=== PATIENT | female | born 1975 | race Caucasian/White ===

== ENCOUNTER 2017-02-08 09:40 | Inpatient (IN) | payer OTHER ==
[~2017-02-08] VITALS: Ht 172.7 cm; Wt 93.4 kg
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
--- NOTE | ~2017-02-08 | INDIVTXPLN ---
"PATIENT: NANO QUINTERO | | [facility] UNIT #: [id number] | [address] AGE/SEX: 41 F : 75 | [address] | [place] [phone] ADMIT/REG DATE: 02/08/17 | ROOM: [facility] LOC: ADTC | ADTC | Individualized Treatment Plan Date: 01 MAR 2017 Problem Statement/Issue Identified: NANO PROFESSES A BELIEF IN GOD BUT HAS CONTINUED TO TURN TO DRUGS/ALCOHOL TO HELP HER COPE WITH LIFE STRESSORS. Goal: NANO WILL FOCUS ON BUILDING A STRONGER AND PERSONAL RELATIONSHIP WITH HER HIGHER POWER. Objectives/Activities to achieve goal: 1. Nano will read LETTING GO OF THE NEED TO CONTROL highlighting those characteristics and behaviors that parallel her own experience. She will discuss her work and insights gained with her primary counselor. Due Date: Complete: Incomplete: 2. Nano will attend SPIRITUALITY EDUCATION, SPIRITUAL ENRICHMENT & AND AND MORAVIAN SERVICES AVAILABLE during the course of her treatment. Due Date: Complete: Incomplete: Client signature Date Counselor signature Date Outcome/Measurement of Progress Towards Goal: Counselor's signature Date "
--- NOTE | ~2017-02-08 | RESCARESUM ---
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 CLIENT DID VERY WELL WITH ALL ASSIGNMENTS APPEARING TO GAIN NEW INSIGHT AND UNDERSTANDING. Continued Obstacles to Sobriety/Relapse Issues: PAST RELATIONSHIPS, OLD FRIENDS/OLD PLACES, FAILURE TO FOLLOW THROUGH WITH TREATMENT/AFTERCARE RECOMMENDATIONS, CODEPENDENCY ISSUES, EXCESSIVE LAURENT ON HAND (TRIGGER FOR GAMBLING AND/OR USING), UNREALISTIC EXPECTATIONS OF SELF AND OTHERS. Family Issues Addressed: FAMILY WAS NOT ABLE TO PARTICIPATE FOR VARIOUS REASONS, BUT CLIENT DID WRITE AND PROCESS FEELINGS LETTERS TO EACH OF HER SONS AND HER MOM WHICH APPEARED TO INITIATE HEALING. Y Individual Therapy Y Group Therapy Y Educational Series on Substance Abuse N Parents/Significant Others Attended Family Program N Acute Medical Problems During the Course of Treatment N Transferred to Hospital During the Course of Treatment Y Accepting of Substance Abuse Problem Completed AA Step # 1 During This Level of Care VERY THOROUGH PATIENT: NANO QUINTERO | | [facility] UNIT #: [id number] | [address] AGE/SEX: 41 F : 75 | [address] | [place] [address] ADMIT/REG DATE: 02/08/17 | ROOM: [facility] LOC: ADTC | ADTC | Summary of Residential Care Reason For Discharge: Y Completed Residential [place] Goals and Ready For Next Level of Care Continuing Care Plan/Recommendations: Y Intensive Partial Care Y Sponsor Y AA Meetings/NA Meetings Y Outpatient Y Co-dependency services Y [address] NEEDS TO BE CONSIDERED IF CLIENT IS UNABLE TO STAY CLEAN/SOBER Y Mental Health Therapy MAY NEED FOR MEDICATION MANAGEMENT Y Family Counseling CLIENT AND HER SON(S) WOULD BENEFIT FROM SOME FAMILY SESSIONS Specific Continuing Care Plan: CLIENT IS REFERRED TO [facility] IN [place] FOR INTENSIVE OUTPATIENT AFTERCARE TREATMENT. CLIENT NEEDS TO SUCCESSFULLY COMPLETE ANY AND ALL REQUIREMENTS OF THIS PROGRAM AND ENGAGE IN RECOMMENDED AFTERCARE RECOMMENDED FOLLOWING HER COMPLETION OF IOP. CLIENT NEEDS TO ATTEND 2-3 AA/NA MEETINGS EACH WEEK AND BE WILLING TO WORK ONE ON ONE WITH AN AA/NA SPONSOR. PRIMARY COUNSELOR: MILA JOHNSON [facility]"
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
--- NOTE | ~2017-02-08 | INDIVTXPLN ---
"PATIENT: NANO QUINTERO L | | [facility] UNIT #: [id number] | [address] AGE/SEX: 41 F : 75 | [address] | [place] [phone] ADMIT/REG DATE: 02/08/17 | ROOM: [facility] LOC: ADTC | ADTC | Individualized Treatment Plan Date: 01 MAR 2017 Problem Statement/Issue Identified: NANO NEEDS TO GAIN UNDERSTANDING OF CODEPENDENCY/MALE DEPENDENCY AND THE IMPORTANCE OF BOUNDARIES IN HER RELATIONSHIPS. Goal: NANO WILL GAIN UNDERSTANDING OF THE CHARACTERISTICS OF HEALTHY VS UNHEALTHY RELATIONSHIPS, CARETAKING VS CAREGIVING AND THE IMPORTANCE OF MAINTAINING HEALTHY BOUNDARIES IN HER RELATIONSHIPS. Objectives/Activities to achieve goal: 1. Nano will read BOUNDARIES FOR CODEPENDENTS highlighting thinking and behaviorial patterns that parallel her own experience. She will discuss her work and any insights gained with her primary counselor. Due Date: Complete: Incomplete: 2. Nano will read handout CODEPENDENCY; A SECOND-HAND LIFE. She will discuss insights gained with her primary counselor. Due Date: Complete: Incomplete: 3. Nano will identify at least FIVE NEW BOUNDARIES she needs to establish in her relationships and discuss these with her counselor. Due Date: Complete: Incomplete: Client signature Date Counselor signature Date Outcome/Measurement of Progress Towards Goal: Counselor's signature Date "
--- NOTE | ~2017-02-08 | TXPLANREV ---
"PATIENT: NANO QUINTERO | | [facility] UNIT #: [id number] | [address] AGE/SEX: 41 F : 75 | [address] | [place] [phone] ADMIT/REG DATE: 02/08/17 | ROOM: [facility] LOC: ADTC | ADTC | Treatment Plan/Staffing Review Date: 01 MAR 2017 Treatment plan was reviewed and determined appropriate as written: TREATMENT PLAN IS APPROPRIATE WRITTEN. Treatment plan was reviewed and the following changes/addition/deletions are necessary: ADDITIONAL TREATMENT PLANS WERE CREATED TO ADDRESS RELAPSE/FEELINGS/GRIEF/CODEPENDENCY ISSUES. Discharge plans were reviewed and determined appropriate as previously documented: PREVIOUSLY DOCUMENTED DISCHARGE PLANS ARE APPROPRIATE. Discharge plans were reviewed and determined to be as follows: CLIENT IS COMPLETING PAPERWORK TO REGISTER FOR INTENSIVE OUTPATIENT AFTERCARE AT [facility] IN [place]. Other pertinent issues discussed during this staffing review include: CLIENT HAS MADE SIGNIFICANT PROGRESS EVIDENCED BY HER WILLINGNESS TO BE HONEST IN IDENTIFYING SPECIFIC EXAMPLES OF POWERLESSNESS AND UNMANAGABILITY, COMPLETION OF ASSIGNMENTS IN A TIMELY FASHION, GETTING AND GIVING FEEDBACK IN GROUP AND WILLINGNESS TO SHARE AND DISCUSS ONGOING CONCERNS AND ISSUES IN INDIVIDUAL SESSIONS. CLIENT IS CURRENTLY WORKING ON CODEPENDENCY ISSUES, BOUNDARIES, LETTING GO OF THE NEED TO CONTROL AND MY CHANGE PLAN. SHE WILL START FAMILY EDUCATION TODAY. Staff Present: JOSEPHINE EVANS PRIMARY COUNSELOR: MILA JOHNSON [facility] Client Signature Counselor Signature Date Time "
--- NOTE | ~2017-02-08 | INDIVTXPLN ---
"PATIENT: NANO QUINTERO | | [facility] UNIT #: [id number] | [address] AGE/SEX: 41 F : 75 | [address] | [place] [phone] ADMIT/REG DATE: 02/08/17 | ROOM: [facility] LOC: ADTC | ADTC | Individualized Treatment Plan Date: 01 MAR 2017 Problem Statement/Issue Identified: NANO NEEDS TO GAIN UNDERSTANDING AND BE ABLE TO RECOGNIZE POTENTIAL RELAPSE TRIGGERS/ ISSUES. Goal: NANO WILL IDENTIFY POTENTIAL RELAPSE TRIGGERS/ISSUES AND DEVELOP A PLAN TO DEAL WITH THEM THEY ARISE. Objectives/Activities to achieve goal: 1. Nano will obtain a TEMPORARY SPONSOR and be willing to contact her while she is still here in treatment. Due Date: Complete: Incomplete: 2. Nano will attend all 12-STEP SUPPORT MEETINGS whild she is in treatment making it a point to reach out to other women in recovery and begin to develop a healthy support system. Due Date: Complete: Incomplete: 3. Nano will read RELAPSE TRIGGERS & WARNING SIGNS identifying her top five triggers. She will discuss these with her primary counselor and develop a plan to deal with them as they arise. Due Date: Complete: Incomplete: 4. Nano will complete MY CHANGE PLAN and process her work with her primary counselor. Due Date: Complete: Incomplete: Client signature Date Counselor signature Date Outcome/Measurement of Progress Towards Goal: Counselor's signature Date "
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
--- NOTE | 2017-02-08 13:37 | NUR ---
FAMILY CONTACT: Left [facility] for client's mom to call. She is to have hip surgery while the client is here in treatment will likely not attend any programing. The oldest son is working in [place], the next is in long-term, #3 lives with his aunt and she through #4 might beable to come, but he is in school. I will continue to work on this.
--- NOTE | 2017-02-08 15:59 | NUR ---
ADMISSION NOTE Client is a 41 y/o, single female, referred to treatment by the court and brought here today by a female friend from client's home in [place], where client resides with her mom. Client states DOC is meth, last used December 24, 2016 in what client describes as a small amount. Client states NKMA and brings with her some bjkd-hnk-gxhtlfv medications. These home medications were packaged for storage at the pharmacy. Client anticipates family group participation from her mom and son. Rights/Responsibilities: Copy given and explained to client. Signed and accepted by client. Client oriented to physical lay out of the ADTC unit, given Big Book and admission packet. A Elian was assigned. Tamika
--- NOTE | 2017-02-08 16:32 | NUR ---
FAMILY CONTACT: Did visit with client's mom. She is planning hip surgery so has difficulty walking unassisted. She does want to be involved and is grateful client is here. I will check back on her once she has had time to look over family packet.
--- NOTE | 2017-02-08 19:13 | NUR ---
Education 1HR: Clt watched half of video "Pleasures Unwoven" with staff present.
--- NOTE | 2017-02-08 23:13 | NUR ---
Tech note: Clt played a game for rec, attended GM and onsite AA mtg. Clt was searched checked into room and had first intro to grp. SE was arriving at tx.
--- NOTE | 2017-02-09 04:26 | NUR ---
Bed Note: Clt lay motionless in bed with eyes closed showing no distress at all bed checks.
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
--- NOTE | 2017-02-09 13:00 | NUR ---
PEER REVIEWS 1 HR: Clt participated in peer reviews and took a risk to give open and honest feedback to those receiving a review.
--- NOTE | 2017-02-09 13:07 | NUR ---
Tech Note: Client is working on Getting Started.
--- NOTE | 2017-02-09 21:57 | NUR ---
med note: client complained of headache. pain level 3 motrin given
--- NOTE | 2017-02-09 22:40 | NUR ---
Tech note : Client watched movies, played games with peers and walked to an offsite AA meeting.
--- NOTE | 2017-02-10 04:09 | NUR ---
Bed note: Client was in bed with eyes closed and no distress at all bed checks.
--- NOTE | 2017-02-10 07:45 | NUR ---
Medication Note: Client took mucinex for congestion and prn ibuprophen for H/A rated at 4.
--- NOTE | 2017-02-10 16:36 | NUR ---
Tech Note: Client attended N.A.Panel and is working on Getting Started. Client also went for a walk today.
--- NOTE | 2017-02-10 22:20 | NUR ---
Tech note : Client worked on [employer], [employer] or watched sports for rec this evening. Client walked to an offsite AA meeting.
--- NOTE | 2017-02-11 04:07 | NUR ---
Bed note: Client was in bed with eyes closed with no distress at all bed checks
--- NOTE | 2017-02-11 15:27 | HP ---
ADMIT: 02/08/2017 RM/LOC: [id number] MR#: [id number] 2620 [facility] [address] [place] [phone] NANO QUINTERO [address] [facility] [address] [facility] [place] [place] [address] History and Physical SEX: F AGE: 41 : 1975 DATE OF SERVICE: CHIEF COMPLAINT: Chemical dependency. HISTORY OF PRESENT ILLNESS: Nano is a 41-year-old single, white female, who was admitted to residential level treatment at [facility] with a lengthy legal history after serving penitentiary time May 29 through October 19, 2016 in [facility] with domestic assault and use of a deadly weapon charges. She was additionally sent to probation and relapsed on meth and was referred to residential treatment. She has a lengthy prior legal history and states she has been in penitentiary probably around nine or ten times. Her legal charges mainly include burglary, DUI, refusal to submit, domestic assaults, theft and forgeries. Nano's drug of choice on admission is methamphetamines. She first started using meth at 38 years of age with friends when she smoked it. She states initially she smoked it daily for about nine months. She states she used 20 to 30 dollars a day. She admits to having sex to get money to buy drugs. She admits IV use once. She states her heaviest use was first nine months. The last year prior to going to penitentiary, she used it 3 to 4 times a week. Since September 2016, she states she only used it once and that was in November 2016. Second drug of choice is K2. She states she first started smoking K2 at 39. She states she used it daily from 39 to 40. She states that she has not used it in over a year. She states that she has used marijuana as well intermittently. At first started using that at 16 and used pot off and on to come off the meth. Her last marijuana use was in November 2016. Her third drug of choice was likely opiates. She states she used to love prescription pills. She first started using around 35 years of age. She states she would take 20 or 30 hydrocodones or oxycodone on a daily basis. She states that at times she would use up to 60 Xanax in 2 or 3 days. She states she last used opiates are benzodiazepines three years ago. She states she could no longer get them from her physician. Fourth drug of choice is alcohol. She states alcohol was really not a problem when she was young, but she states she drank off and on throughout high school and at times drank heavily. In her 20s, she states she did not drink as she was raising children. She states since 2011, she has been binge drinking. She would have anywhere from 4 to 6 ounces to a pint of hard liquor. Normally, she would only binge drink one or two times a week. Last alcohol use was a month ago. She denies any alcohol withdrawal, seizures, DTs, tremors, or hallucinations. She admits to using twice. She denies other illicit drug use. PAST MEDICAL HISTORY: Operations include tubal ligation, left Achilles tendon repair twice, four vaginal deliveries, meningitis as an illness and bipolar disorder and depression. ADMIT: 02/08/2017 RM/LOC: [id number] [facility] MR#: [id number] [address] [place] [phone] NANO QUINTERO [address] [place] [address] History and Physical SEX: F AGE: 41 : 1975 MEDICATIONS: None. ALLERGIES: NONE KNOWN. SOCIAL HISTORY: She is a 41-year-old single white female. She has 4 children. They are scattered about the state with her ex- and her other relatives. She smokes 8 to 10 cigars a day. She states she has had sex with numerous people in order to get money or what she wants and she used to have huge gambling addiction and admits to spending about a half a million dollars in gambling, many of which she swindled other people out of. REVIEW OF SYSTEMS: Remarkable for her mental health problems with depression, anxiety, and bipolar. Remainder review of systems negative. PHYSICAL EXAMINATION: VITAL SIGNS: She is 5 feet 8 inches with a weight 93 kg. Blood pressure 128/64 with a pulse 57, and temp 96.9. GENERAL APPEARANCE: This is a 41-year-old obese white female. She is alert and oriented and appears older than stated age. HEENT: Pupils are reactive. TMs are normal. Throat is normal. NECK: Without nodes or masses. HEART: Regular without murmur. LUNGS: Clear. ABDOMEN: Obese, soft, nontender, and benign. AND RECTAL: Deferred. EXTREMITIES: Reveal no clubbing, cyanosis, edema, or traction or splinter hemorrhages. NEUROLOGIC: Normal. ASSESSMENT: 1. Stimulant use disorder, severe with history of IV use. K2 use disorder, severe, in partial remission. 2. Opiate use disorder, severe, in full sustained remission. ADMIT: 02/08/2017 RM/LOC: Jose [id number] [facility] MR#: [id number] [address] [id number] NANO QUINTERO [id number] [place] [address] History and Physical SEX: F AGE: 41 : 1975 3. Alcohol use disorder, severe. 4. Tobacco dependency. 5. Bipolar disorder. 6. Increased risk of HIV. 7. Hepatitis C. 8. Obesity. PLAN: We will obtain HIV and hepatitis C testing on her. Place her on a multivitamin and thiamine and initiate Seroquel and Zoloft therapy, proceed with drug and alcohol abuse, dependency, treatment, and counseling and further evaluation and management based on course during hospitalization. Please see her hospital record for the details. Jos Martel MD/ marce JOB #: [id number] CC: Jos Martel, Attending Physician NO FAMILY PHYSICIAN, Family Physician
--- NOTE | 2017-02-11 16:54 | NUR ---
Tech Note: Client attended congregational in the morning. Client stated that she is working on, "How to Get Started in Treatment."
--- NOTE | 2017-02-11 20:50 | NUR ---
tech note: client c/o level 3 ear, back & tmj pain, motrin 400 mg was given
--- NOTE | 2017-02-11 23:05 | NUR ---
tech note: Client attended onsite AA Panel & participated in Community Clean. Client watched movies. SE: Easter Eggs.
--- NOTE | 2017-02-12 04:32 | NUR ---
tech note: client was motionless in no distress at all bed checks.
--- NOTE | 2017-02-12 10:20 | NUR ---
Tech Notes: Client is working on Getting Started
--- NOTE | 2017-02-12 11:04 | NUR ---
Education Note: Client watched video for education today.
--- NOTE | 2017-02-12 11:30 | NUR ---
GROUP 1.5 HR/ 11:1 Clients heard peer share GS packet and this client was attentive and shared about her son going to shelter, son found God and now is changed and wants mom to make it in recovery.
--- NOTE | 2017-02-12 16:00 | NUR ---
RECOVERY 101 1 HR/ All clients participated in discussing what are the fundamentals of what they learn at AA/NA meetings that will help them succeed in recovery such as meetings, sponsor, home group, working steps, service work, attending functions, slogans/acronyms as tools, etc. This client was involved.
--- NOTE | 2017-02-12 19:16 | NUR ---
Education: 1 Hour. Client attended "Communications" lecture presented by staff.
--- NOTE | 2017-02-12 20:09 | NUR ---
COUNSELOR NOTE: Client came to me with want to call her mother to bring cigarettes. Client said she got another counselor to try to reach her mother earlier to see if mom and client's son could come for the Family Education today. They apparently received no response and client was unable to reach her mother in this later attempt. I explained to client that if her mother was coming for Education, it would be within the next 1/2 hour. She still was insistant to call. I did make her wait until later, allowed the call and she [place] [facility] Session scheduled tomorrow.
--- NOTE | 2017-02-12 21:45 | NUR ---
tech note: client c/o back,ear & tmj level 4 pain @ 2145,motrin 400 mg given.
--- NOTE | 2017-02-12 23:36 | NUR ---
Client attended N.A.Meeting and went on a walk for rec. SE: Saw old friend at N.A.Meeting
--- NOTE | 2017-02-13 04:22 | NUR ---
Bed note: Client was in bed with eyes closed with no distress at all bed checks
--- NOTE | 2017-02-13 15:46 | NUR ---
Tech Note: Client participated in light stretching for monring exercise and went for an outdoor walk in the afternoon. Client followed programming.
--- NOTE | 2017-02-13 15:56 | NUR ---
APolly res group 1 hr/ratio 1:9/ Group heard feelings letters and a step one. Discussed how addiction has affected others and how we can turn things around. This client was quiet the whole group.
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
--- NOTE | 2017-02-13 18:55 | NUR ---
med note: client complained of headache. pain level 4. motrin given
--- NOTE | 2017-02-13 19:23 | NUR ---
Education note: 1 hour watched video "enabler".
--- NOTE | 2017-02-13 19:33 | NUR ---
education note: 1 hour lecture by [facility] on hiv/aid/std. plus clients wwere tested for HIV.
--- NOTE | 2017-02-13 22:22 | NUR ---
Tech note: client did not walk for rec as she was waiting for results from HIV testing. She participated in guided meditation and attended an onsite AA meeting.
--- NOTE | 2017-02-14 05:32 | NUR ---
Bed note : Client was in bed with eyes closed and no movement at all bed checks.
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
--- NOTE | 2017-02-14 12:24 | NUR ---
AM GROUP 11:11.5 HR: Client and peers helped to ORIENT A NEW PEER TO GROUP GUIDELINES, GOALS AND OBJECTIVES. Client and peers heard this client and several other individuals process assignments and some discussion on the disease concept. This client did process assigned pages from GETTING STARTED IN TREATMENT packet. She seems to have done well with this, but tends to expand on her written work and rambles on and on. We had to cut her processing short to give others a chance to share thier own work. She did not get defensive and went on to confront a male peer for his over-confidence and delusion.
--- NOTE | 2017-02-14 13:45 | NUR ---
Tech Note: Outside speaker Tristen Arauz spoke at 1300. Client attended and is working on Step 1.
--- NOTE | 2017-02-14 17:22 | NUR ---
SPIRITUAL EDUCATION 1 HR. Topics today were clarifying the differences between spirituality and uatsdin, and playing the spiritual challenge game where they are asked thought provoking open ended questions. It is meant to inspire spiritual line of thought.
--- NOTE | 2017-02-14 22:48 | NUR ---
Tech Note : Client participated in rec by playing catch phrase and attended an onsite NA meeting.
--- NOTE | 2017-02-14 23:41 | NUR ---
Education: 1 Hour. Client attended "Disease Concept" presented by counselor.
--- NOTE | 2017-02-15 05:40 | NUR ---
Bed Note: Client was motionless with eyes closed at all bed checks.
--- NOTE | 2017-02-15 13:39 | NUR ---
PEER REVIEWS 1 HR: Clt participated in peer reviews and took a risk to give open and honest feedback to those receiving a review. The last half hour of group clients talked about loved ones and dying.
--- NOTE | 2017-02-15 15:31 | NUR ---
Tech Note: Client participated in light stretching for morning exercise. Client stated that she is working on Step One.
--- NOTE | 2017-02-15 15:48 | NUR ---
Education 1 Hour: Client heard from a member of the recovery community who shared his experience, strength and hope.
--- NOTE | 2017-02-15 16:12 | NUR ---
Step Education 1 hr/ Focus was on step 12 "having had a spiritual awakening", each person completed a set of questions on paper and then we discussed. This client participated.
--- NOTE | 2017-02-15 19:43 | NUR ---
Tech note: client was off the unit for [employer] banquet and speaker event
--- NOTE | 2017-02-16 11:30 | NUR ---
Group 1.5 hr/ 10:1 Clients all heard peers share feelings letters and this client was attentive, heard others talk about parents not being there for them. She related to being a mom with an addiction which hurt her kids.
--- NOTE | 2017-02-16 13:58 | NUR ---
Tech Note: Client went with group on an outdoor walk. Client is working on Step 1.
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
--- NOTE | 2017-02-16 16:02 | NUR ---
Education Note: Client watched "How to Sabotage Your Treatment"
--- NOTE | 2017-02-16 23:00 | NUR ---
TECH NOTE: Client participated in reading [employer], watched tv/movies, attended optional off site AA meeting. SE: Phone
--- NOTE | 2017-02-17 04:06 | NUR ---
Bed Note: Clt lay motionless in bed with eyes closed showing no distress at all bed checks.
--- NOTE | 2017-02-17 15:26 | NUR ---
Tech Note: Client is working on Feelings Letters and had a visitor.
--- NOTE | 2017-02-17 22:57 | NUR ---
TECH NOTE: Client played a game for REC, attended off site AA meeting, watched TV/movies SE: AA
--- NOTE | 2017-02-18 04:49 | NUR ---
Bed Note: Clt lay motionless in bed with eyes closed showing no distress at all bed checks.
--- NOTE | 2017-02-18 15:26 | NUR ---
Tech Note: Client participated in Big Book and stated that she is working on writing Feelings Letters.
--- NOTE | 2017-02-18 23:00 | NUR ---
Tech Note: Client attended A.A.Panel and participated in community clean. Client also attended the PRESIDENT Meeting. SE: Visit. Her mother is in wheelchair and walked from car to Door for her.
--- NOTE | 2017-02-19 04:52 | NUR ---
Bed Note: Client was motionless with eyes closed at all bed checks.
--- NOTE | 2017-02-19 10:24 | NUR ---
Tech notes: Client is working on Fl's
--- NOTE | 2017-02-19 15:44 | NUR ---
Morning Group, 1.5 hours, 11/18 Clients all participated in 2 family sculptures with role-playing, feedback, and how they related.
--- NOTE | 2017-02-19 16:05 | NUR ---
RECOVERY EDUCATION 1 HR. Todays topic was on denial; good, bad, and levels, life problems being 85 percent of recovery, and distorted thinking patterns that can keep us stuck.
--- NOTE | 2017-02-19 16:31 | NUR ---
Education note: Client watched video "[address]mare on [address]"
--- NOTE | 2017-02-19 18:44 | NUR ---
Education: 1 Hour. Client attended "Feelings" lecture given by staff.
--- NOTE | 2017-02-19 21:13 | NUR ---
tech note: client c/o level 3 pain from TMJ,motrin 400mg given @ 2111.
--- NOTE | 2017-02-19 22:13 | NUR ---
Tech note: Client participated in rec by playing Idea Shower outside. Client attended an onsite NA meeting.
--- NOTE | 2017-02-20 04:17 | NUR ---
BED NOTE: client was in bed, motionless with eyes closed all three bed checks.
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
--- NOTE | 2017-02-20 16:20 | NUR ---
Relapse Prevention, 11/15 ratio, 1.0 hours, Client attended and actively participated in relapse prevention education which focused on personal reactions to high risk situtations such as personal reactions vs. personal responses, addictive thinking, irresponsible thinking, addictive behavior, irresponsible behavior, instant gratification, and emotional consequences to thoughts and actions.
--- NOTE | 2017-02-20 16:38 | NUR ---
Tech Note: Client listened to speaker Jos share his experience, strength and hope. Client is working on Feelings Letters.
--- NOTE | 2017-02-20 18:41 | NUR ---
INDIVIDUAL SESSION 1 HR: client processed FEELINGS LETTER to her mother. She did well with this, identifying her own behaviors but none of mom's. Client agreed that she would write a VENT letter to mom but nothing that she is willing to share. Client is working on her STEP ONE, but hasn't made much progress. She is experiencing a lot of shame.
--- NOTE | 2017-02-20 19:33 | NUR ---
Education : 1 hour lecture given by counselor on feelings.
--- NOTE | 2017-02-20 22:23 | NUR ---
Tech note: Client played catchphrase for rec, participated in guided meditation and attended AA meeting. SE:reading feelings letters
--- NOTE | 2017-02-21 04:25 | NUR ---
Bed note: client was in bed with eyes closed and no distress at all bed checks.
--- NOTE | 2017-02-21 10:05 | NUR ---
Tech notes: Client is working on Fl's
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
--- NOTE | 2017-02-21 13:30 | NUR ---
Education note: Client watched video
--- NOTE | 2017-02-21 16:25 | NUR ---
SPIRITUAL EDUCATION 1 HR. Todays topic was the ADDICTIVE SELF vs. SPIRITUAL SELF. We held discussion on who we are in our addiction vs who we are in recovery and contrasted the two.
--- NOTE | 2017-02-21 18:34 | NUR ---
Education: 1 hour lecture on self esteem given by counselor
--- NOTE | 2017-02-21 18:34 | NUR ---
Education: 1 hour lecture on self esteem given by counselor
--- NOTE | 2017-02-21 22:51 | NUR ---
Client did beads for rec and attended N.A.Meeting. SE: Having a good Razor
--- NOTE | 2017-02-22 04:01 | NUR ---
Bed note: client was in bed with eyes closed and no distress at all bed checks.
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
--- NOTE | 2017-02-22 15:29 | NUR ---
Tech Note: Client participated in Spiritual Enrichment in the morning and went for an outdoor walk after lunch. Client is bridget to a newly admitted client.
--- NOTE | 2017-02-22 16:17 | NUR ---
Education 1 Hour: Client heard a presentation on cross addiction.
--- NOTE | 2017-02-22 17:23 | NUR ---
Step ed. 1 hr/ focus was on step one and powerlessness. Each person answered a set of questions on paper and then we discussed out loud. This client participated.
--- NOTE | 2017-02-22 23:14 | NUR ---
TECH NOTE: Client did newcommer bookmarks for REC, participated in guided meditation, and attended AA meeting. SE: REC
--- NOTE | 2017-02-23 01:21 | NUR ---
1 HR EDUCATION: Client watched a video "Say Yes to Life" by Father Pete Reynaga
--- NOTE | 2017-02-23 04:43 | NUR ---
Bed Note: CLt lay motionless in bed with eyes closed showing no distress at all bed checks.
--- NOTE | 2017-02-23 13:39 | NUR ---
Morning Group, 11/08, 1.5 hours, Client attended and actively participated in group session. Client read her feelings letters and was accepting of feedback she received about the letters to her sons.
--- NOTE | 2017-02-23 14:54 | NUR ---
PEER REVIEWS 1.5 HRS: Clt participated in peer review process and took a risk to give open and honest feedback.
--- NOTE | 2017-02-23 16:25 | NUR ---
Tech Note: Clt watched "Relapse" for afternoon video. Clt is working on Feelings Letters.
--- NOTE | 2017-02-23 21:39 | NUR ---
med note: client complained of headache pain level 3 motrin was givne
--- NOTE | 2017-02-23 22:47 | NUR ---
Tech note: Client watched tv and movies. client went to an offsite AA meeting.
--- NOTE | 2017-02-24 05:23 | NUR ---
Bed note : Client was in bed motionless with eyes close at all bed checks.
--- NOTE | 2017-02-24 15:40 | NUR ---
Tech Note: Client attended A.A.Meeting at [facility] and [place] and then helped with the clubhouse cleaning, ate lunch, and listened to a speaker. Client is working on FL's/self esteem packets
--- NOTE | 2017-02-24 18:17 | NUR ---
tech note: client c/o level 4 TMJ pain & allergy symptoms @ 181,motrin 400 mg was given & mucinex.
--- NOTE | 2017-02-24 20:48 | NUR ---
tech note: Client played a game for recreation & attended offsite AA meeting.Client talked on the phone & watched tv. SE: Family.
--- NOTE | 2017-02-25 05:25 | NUR ---
Bed note: Client was in bed motionless with eyes closed at all bed checks.
--- NOTE | 2017-02-25 16:21 | NUR ---
TECH NOTE: Client participated in Chapter 5 of Big Book study, attended voodoo and watched tv/movies
--- NOTE | 2017-02-25 23:42 | NUR ---
tech note: client attended AA Panel & BLAST FURNACE CHECKER. Client participated in Community Clean & talked on the phone. SE: All day sober.
--- NOTE | 2017-02-26 04:40 | NUR ---
Bed Note: Clt lay motionless in bed with eyes closed showing no distress at all bed checks.
--- NOTE | 2017-02-26 11:15 | NUR ---
Tech notes: Client is working on Fl's
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
--- NOTE | 2017-02-26 15:41 | NUR ---
Education note: Client attended speaker for education, Bernice on Tobacco
--- NOTE | 2017-02-26 16:19 | NUR ---
INDIVIDUAL SESSION 1 HR: Client processing FEELINGS LETTERS to her four sons. She has done well with the letters, identifying specific incidents and her feelings of sad and ashamed. She shows no emotion as she shares them but early on, client did shed tears as she first began to get in touch with these things and talk specifics. Client has said more than once, "I have cried so many tears the past three years, I made up my mind that I wasn't going to cry and more, I'm just going to work on doing things different." Client is very determined, and I'm afraid experiencing some denial and delusion. Though she admits that she was hooked after the first time she used meth, she now believes that she and her sons (the three oldest) have all experimented with pot, k2 and meth (oldest) and she has used with them. Client is determined to go back to [place] and live with her oldest son. He was supposed to move in to a two bedroom apartment today. I will staff this tomorrow and contact her PO for imput but he has only met her one time. She was given MY CHANGE PLAN and LETTING GO OF THE NEED TO CONTROL and continues to work on BOUNDARIES & SIGNS OF ADDICTIVE LOVE.
--- NOTE | 2017-02-26 18:15 | NUR ---
Education: 1 hour lecture given by counselor on "forgiveness"
--- NOTE | 2017-02-26 22:29 | NUR ---
Tech note : Client went on a walk for rec and attended an onsite NA meeting. SE; Education
--- NOTE | 2017-02-27 04:16 | NUR ---
Bed note: Client was in bed with eyes closed and no distress at all bed checks.
--- NOTE | 2017-02-27 12:39 | NUR ---
A.M. 1.5 hr res group/ratio 1:10/ Group heard a getting started and a goodbye letter to addiction. Discussed having resentment towards self, how kids are forgiving, and we oriented 3 new group members. This client related and gave feedback.
--- NOTE | 2017-02-27 13:22 | NUR ---
Tech Note: Client participated in light stretching for morning exercise and went for an outdoor walk in the afternoon. Client stated that she is working on, "My Change Plan" and "[place]' Thinkin."
--- NOTE | 2017-02-27 13:35 | NUR ---
Education One Hour: Client heard a presentation on Sexually Transmitted Disease.
--- NOTE | 2017-02-27 14:15 | NUR ---
Medication Note: Client took prn ibuprophen for sore throat pain rated at 4, and mucinex and cepacol lozenge.
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
--- NOTE | 2017-02-27 16:09 | NUR ---
Relapse Prevention Education, 1.0 hours, Client attended and actively participated in relapse prevention education which focused on a Relapse Prevention Quiz and discussion over the answers.
--- NOTE | 2017-02-27 18:35 | NUR ---
med note: client complained of ear ache. pain level 3. motrin given
--- NOTE | 2017-02-27 20:30 | NUR ---
education note: 1 hour lecture by counselor on" what marion are you willing to pay"
--- NOTE | 2017-02-27 22:52 | NUR ---
Tech note: Client attended the Alumni meeting, participated in guided meditation and attended an onsite AA meeting. SE; Sharing with peer
--- NOTE | 2017-02-28 04:57 | NUR ---
Bed note: Client was in bed with eyes closed and motionless at all bed checks.
--- NOTE | 2017-02-28 10:40 | NUR ---
Tech notes: Client is working on Change plan
--- NOTE | 2017-02-28 12:37 | NUR ---
Education note: Client had education by [facility]
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
--- NOTE | 2017-02-28 17:29 | NUR ---
SPIRITUAL EDUCATION 1 HR. Todays topics were orienting newcomers, and taking a look at Evgeny Archibald's 5 SECRETS TO SUCCESS which include a look at the miracles of the human body as blessings.
--- NOTE | 2017-02-28 20:57 | NUR ---
education: 1 hour video on unresolved anger and group discussion with counselor
--- NOTE | 2017-02-28 22:12 | NUR ---
Tech note: Client worked on beaded project and attended an onsite NA meeting. Her S/O was at the meeting SE; Group
--- NOTE | 2017-03-01 04:03 | NUR ---
Bed note: Client was in bed with eyes closed and no distress at all bed checks.
--- NOTE | 2017-03-01 10:29 | NUR ---
Tech Note: Client participated in Spiritual Enrichment. Client followed programming.
--- NOTE | 2017-03-01 11:04 | NUR ---
INDIVIDUAL SESSION 1 HR: Client processed from [employer]OHAN [employer]INKIN and remaining FEELINGS LETTERS. Also talked with her about her Codependency issues. She is reading BOUNDARIES packet and will attend FAMILY EDUCATION today and Sunday. Contact made for aftercare. Client signed release and paperwork received from the agency.
--- NOTE | 2017-03-01 11:06 | NUR ---
DISCHARGE PLANNING: Contact made with [facility] in [place]. They have emailed registration forms which client will complete and send back. This has to be received before they will schedule an intake.
--- NOTE | 2017-03-01 11:24 | NUR ---
Medication Note: Client took prn ibuprophen for TMJ pain rated at 3 and mucinex.
--- NOTE | 2017-03-01 13:39 | NUR ---
Education 1 Hour: Client heard a presentation from a member of the recovery community who shared his experience, strength and hope.
--- NOTE | 2017-03-01 16:34 | NUR ---
FAMILY EDUCATION 3 HRS. Client attended alone and took part in the discussion on the disease concept. Client shared chemical history and the consequences. This client also shared about past gambling addiction and had 5 years of treatment for it.
--- NOTE | 2017-03-01 23:48 | NUR ---
Tech Note: Client attended Guided Meditation and A.A.Meeting. SE: Speaker
--- NOTE | 2017-03-02 04:25 | NUR ---
Eduction: 1 Hour. Client attended "Unresolved Anger" video & discussion presented by staff.
--- NOTE | 2017-03-02 11:43 | NUR ---
Group 1.5 Hr Ratio 1:9/Topics today were two getting started packets, forgiveness and dealing with bad childhoods. Client shared how she could relate to peers sharing that they struggle forgiving others or their self.
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
--- NOTE | 2017-03-02 16:24 | NUR ---
Tech Note: Client participated in group walk for exercise and watched "Recovery Issues Part 3" for afternoon video. Client is working on her Change Plan.
--- NOTE | 2017-03-02 22:49 | NUR ---
TECH NOTE: Client participated in reading guidelines and watched tv/movies. attended off site optional AA meeting SE: military source operations officer conversation
--- NOTE | 2017-03-03 04:11 | NUR ---
Bed Note: Clt lay motionless in bed with eyes closed showing no distress at all bed checks.
--- NOTE | 2017-03-03 08:35 | NUR ---
Medication Note: Client took prn ibuprophen for temporal/mandibular joint pain rated at 3.
--- NOTE | 2017-03-03 16:04 | NUR ---
Tech Note: Client attended NA Panel and is working on her Change Plan. She had a visitor.
--- NOTE | 2017-03-03 20:26 | NUR ---
Tech note: Clt played a game for recreation and attended offsite AA mtg. Watched tv, used phone and watched tv. Clt was redirected for making phone calls for male peer who didn't have phone priveleges. Filled out self care sheet. SE was visits and phone calls
--- NOTE | 2017-03-04 04:38 | NUR ---
Bed Note: Clt lay motionless in bed with eyes closed showing no distress at all bed checks.
--- NOTE | 2017-03-04 15:54 | NUR ---
Tech Note: Client participated in Big Book Study. Client stated that she is working on, "My Change Plan." Client attended caodaism and receiveda visitor.
--- NOTE | 2017-03-04 22:48 | NUR ---
Tech Note: Clt attended AA panel, DOUGH MIXING MACHINE OPERATOR mtg, used phone and watched movies. SE was DOUGH MIXING MACHINE OPERATOR and phone
--- NOTE | 2017-03-05 04:40 | NUR ---
Bed Note: Clt lay motionless in bed with eyes closed showing no distress at all bed checks.
--- NOTE | 2017-03-05 10:17 | NUR ---
Tech notes: Client is working on Change plan
--- NOTE | 2017-03-05 11:30 | NUR ---
Morning Group, 11/07 ration, 1.5 hours, Client attended and actively participated in group discussion. Client was quiet for most of group.
--- NOTE | 2017-03-05 13:31 | NUR ---
Education: Client attended education by [facility] on Infection prevention.
--- NOTE | 2017-03-05 16:38 | NUR ---
INDIVIDUAL SESSION 1 HR: Mostly paperwork session with client completing ther application for outpatient aftercare for [facility] in [place]. Client had many questions; fortunately, staff was able to assist her with these. She also needed premission to call her friend who will drive from [place] to pick her up and transport her back to [place]. Hopefully, we will have an appointment in place by discharge on . Client will process from MY CHANGE PLAN/RELAPSE PACKACT tommorow.
--- NOTE | 2017-03-05 16:42 | NUR ---
DISCHARGE PLANNING: Paperwork signed and completed to fax to [facility] in [place].
--- NOTE | 2017-03-05 17:00 | NUR ---
FAMILY EDUCATION 3 HRS. Client attended alone and took part in the discussion on the family roles, codependency and detachment. Client related to lost child role.
--- NOTE | 2017-03-05 18:12 | NUR ---
Education: 1 Hour. Client attended "Adult Children of Alcoholics" lecture presented by staff.
--- NOTE | 2017-03-05 21:00 | NUR ---
FAMILY GROUP 4:1/ HR: Client, peers and attending family members heard two families process FEELINGS LETTERS. Much of the focus became family of origin issues and rebuilding trust. Everyone related, everyone shared and processed. This client attended alone as her children are out of town. Client was active with personal observations, relating and personal sharing. She was tearful and talked about the reality that her children have been deeply hurt by her choices. Client said all she can do at this point is live "on the redemption side."
--- NOTE | 2017-03-05 23:35 | NUR ---
tech note: Client attended Family. SE: Family.
--- NOTE | 2017-03-06 04:32 | NUR ---
BED NOTE: Client was in bed, motionless with eyes closed all three bed checks.
--- NOTE | 2017-03-06 11:30 | NUR ---
GROUP 1.5 HRS. 1:9 Client participated in orienting new peer to purpose and rules of group. Group discussion included anger and frustration at peer's disrespect and immaturity. The peer was in the other group so clients were redirected at what they can do to be a part of the solution, not part of the problem. This client shared example of not letting her kids' behaviors ruin her day. She also took risk to share more about gambling addiction and how serious it was in the past. She reports she grew up gambling as he dad was also compulsive gambler. She did receive 5 years of treatment for gambling but admits she gambled her tax return away. She shared feelings of regret as she had promised money to help boyfriend keep his house and she lost it all. She had shared the slogan "1 is too many & 1,000 never enough" and advised this also applies to her gambling addiction.
--- NOTE | 2017-03-06 14:00 | NUR ---
INDIVIDUAL SESSION 1 HR: Client processed insight gained from SOHAN THINKIN & BOUNDARIES packets. Client has done well and has learned alot about her addiciton, the impact it has had on her children and enough to know that she needs to put current relationship on hold. Client recognizing that she needs to prioritize her own well-being and that of her children, now grown adults but all with issues. Client shared new understanding she gained in Family Group last night as other peers and their families processed. Session tomorrow for final assignment. Client will discharge on 03/08
--- NOTE | 2017-03-06 16:00 | NUR ---
Relapse Prevention, 1.0 hours, Client attended and actively participated in relapse prevention education which focused on internal and external triggers.
--- NOTE | 2017-03-06 16:37 | NUR ---
Tech Note: Client participated in Nutritional Services presentation and is working on her Change Plan.
--- NOTE | 2017-03-06 22:43 | NUR ---
Education: 1 hour lecture given by counselor on co-dependency
--- NOTE | 2017-03-06 22:53 | NUR ---
Tech note: clients played catchphrase for rec, participated in guided meditation and attended AA meeting SE:understanding from peers
--- NOTE | 2017-03-07 04:37 | NUR ---
bed note: client was in bed with eyes closed and motionless at all bed checks.
--- NOTE | 2017-03-07 12:38 | NUR ---
AM GROUP 9:10/29 1.5 HR: Client and peers participated in ORIENTATION OF TWO NEW PEERS TO GROUP GUIDELINES, PURPOSE, GOALS AND OBJECTIVES. Group heard several process assignments/issues. Much of the focus was on how deeply kids are affected by a parent"s chemical use, even if the kids don't directly see it. This client related giving more examples of how she neglected her relationships with her own children. She was otherwise supporive and encouraging.
--- NOTE | 2017-03-07 13:15 | NUR ---
Education note: Client attended educational speaker Marek Isaac
--- NOTE | 2017-03-07 18:18 | NUR ---
Education: 1 Hour. Client attended "Boudaries" lecture given by staff.
--- NOTE | 2017-03-07 22:57 | NUR ---
Tech Note: Client played a game for rec, and attended The on unit N.A.Meeting. SE: finding some understanding.
--- NOTE | 2017-03-08 04:30 | NUR ---
Bed Note: Client was in bed with eyes closed and motionless at all bed checks.
--- NOTE | 2017-03-08 11:00 | NUR ---
FINAL SESSION 1 HR: Client completed SATISFACTION SURVEY, CONTINUED CARE PLAN & was presented with her Medallion. Client expressed much gratitude for all that she has learned here. He son and his SO were here to pick her up, so I was able to meet them as well. He is very proud of his mom! Everything is set for client at [facility] in [place].
--- NOTE | 2017-03-08 12:52 | NUR ---
DISCHARGE NOTE Client completed treatment and left the facility taking all personal belonging with her, including home medications that had been stored at the pharmacy. Discharge instructions were reviewed and a signed copy provided to the client.
--- NOTE | 2017-04-23 12:53 | DS ---
ADMIT: 02/08/2017 RM/LOC: [id number] [facility] MR#: [id number] [address] [facility] [address] [place] [id number] NANO QUINTERO [address] [facility] [address] [place] [address] General Discharge Summary SEX: F AGE: 41 : 1975 ADMISSION DATE: 02/08/2017 DISCHARGE DATE: 03/08/2017 INDICATION FOR HOSPITALIZATION: Nano is a 41-year-old, single, white female, admitted to residential level treatment at [place] with a lengthy legal history, serving shelter May 29 to October 19, 2016. She was on probation, relapsed on meth, and was referred to treatment. Nano's drug of choice on admission is methamphetamines. Second drug of choice K2. Third drug of choice is opiates. Fourth drug of choice is alcohol. Please see her admission H and P for the details regarding her history of present illness, past medical history, physical exam, and assessment at the time of hospitalization. HOSPITAL COURSE: On admission, Nano was started on multivitamin and thiamine given her history of alcohol abuse and dependency. Claritin was added for allergies and HIV, and hepatitis C testing were requested. Seroquel and Zoloft dosing were adjusted for bipolar disorder. MiraLAX was added for constipation and later Omnicef for an upper respiratory infection. During treatment, her primary counselor assigned was Leland Smith. The patient underwent individual and group therapy sessions on drug and alcohol abuse and dependency. Relapse triggers were identified, and relapse prevention plan was outlined. Spirituality issues were addressed. Family was not able to attend the family portion of treatment program. Nano did write feelings letters to her son's and mother. She was overall accepting of substance abuse problems. She completed step 1 of Alcoholics Anonymous. Reason for discharge was completion of residential level treatment goals. Aftercare recommendations include referral to [facility] in [place] for intensive outpatient aftercare treatment. She additionally was to have sponsor assignment with outpatient counseling, codependency treatment, and active AA and NA meeting involvement. It was felt that her and her sons would benefit from family counseling. Additionally, mental health therapy followup was recommended for medical management of her mental health problems. LABORATORY AND X-RAY DATA: During treatment include hepatitis C testing, which was negative on February 13. HIV tests were confidential and none available at time of discharge. DISCHARGE MEDICATIONS: Include: 1. Claritin 10 mg daily. 2. MiraLAX 1 capful in 8 ounces of water. 3. Zoloft 50 mg daily. 4. Seroquel 50 mg at bedtime. 5. Multivitamin 1 daily. 6. Thiamin 100 mg daily. 7. Epsom salt soaks to feet at bedtime. 8. Omnicef 300 mg 2 capsules once daily to complete a 10-day course of therapy. ADMIT: 02/08/2017 RM/LOC: [id number] [facility] MR#: [id number] [address] [place] [id number] NANO QUINTERO [address] [place] [address] General Discharge Summary SEX: F AGE: 41 : 1975 FINAL DISCHARGE DIAGNOSES: Includes: 1. Stimulant use disorder, severe with history of IV use. 2. 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 3. Opiate use disorder, severe in full sustained remission. 4. Alcohol use disorder, severe. 5. Tobacco dependency. 6. Bipolar disorder. 7. Increased risks of blood borne pathogens. 8. Exogenous obesity. 9. Venous insufficiency. PROCEDURES: Include drug and alcohol abuse dependency treatment and counseling. Please see her hospital course for the details. Jos Martel MD/ marce JOB #: [id number] CC: Jos Martel MD, Attending Physician FAMILY PHYSICIAN, Family Physician
== END 2017-03-08 11:45 | disposition home or self-care (01) | DRG 895 ==
LOC: ADTC 09:40
PROVIDERS: ADMIT Family Medicine
PROC: HZ43ZZZ Group Counseling for Substance Abuse Treatment, 12-Step (ICD-10-PCS; principal; 2017-02-08)
PROC: HZ34ZZZ Individual Counseling for Substance Abuse Treatment, Interpersonal (ICD-10-PCS; principal; 2017-02-08)
DX: F15.20 Other stimulant dependence, uncomplicated (principal); F31.9 Bipolar disorder, unspecified; B19.20 Unspecified viral hepatitis C without hepatic coma; F12.20 Cannabis dependence, uncomplicated; F10.20 Alcohol dependence, uncomplicated; F11.21 Opioid dependence, in remission; F17.290 Nicotine dependence, other tobacco product, uncomplicated; E66.09 Other obesity due to excess calories; I87.2 Venous insufficiency (chronic) (peripheral); J06.9 Acute upper respiratory infection, unspecified; K59.00 Constipation, unspecified; Z65.3 Problems related to other legal circumstances; Z72.6 Gambling and betting; Z72.89 Other problems related to lifestyle